=== PATIENT | male | born 1995 | race Two or more races ===

== ENCOUNTER 2017-11-19 10:49 | Day surgery (SDC) | payer OTHER ==
--- NOTE | 2017-11-12 10:34 | RADIOLOGY REPORT (SQ) ---
EXAM DESCRIPTION: CHEST PA/LATERAL COMPLETED DATE/TIME: 11/12/2017 10:23 am REASON FOR STUDY: PRE OP COMPARISON: None. EXAM PARAMETERS: NUMBER OF VIEWS: two views TECHNIQUE: Digital Frontal and Lateral radiographic views of the chest acquired. RADIATION DOSE: NA LIMITATIONS: none FINDINGS: LUNGS AND PLEURA: No opacities, masses or pneumothorax. No pleural effusion. MEDIASTINUM AND HILAR STRUCTURES: No masses or contour abnormalities. HEART AND VASCULAR STRUCTURES: Heart normal size. No evidence for failure. BONES: No acute findings. HARDWARE: None in the chest. OTHER: No other significant finding. IMPRESSION: NO SIGNIFICANT RADIOGRAPHIC FINDING IN THE CHEST. TECHNICAL DOCUMENTATION: JOB ID: [id number] [employer]- All Rights Reserved Reading location - IP/workstation name: [email or web address]
[2017-11-12 10:51] LABS: APPEARANCE,URINE CLEAR; BILIRUBIN,URINE NEGATIVE (NEGATIVE); COLOR,URINE STRAW; GLUCOSE, URINE NEGATIVE (NEGATIVE); KETONES,URINE NEGATIVE (NEGATIVE); LEUKOCYTE ESTERASE,URINE NEGATIVE (NEGATIVE); NITRITE,URINE NEGATIVE (NEGATIVE); PROTEIN,URINE NEGATIVE (NEGATIVE); URINE SPECIFIC GRAVITY 1.006; UROBILINOGEN,URINE NEGATIVE mg/dL (<2.0)
[2017-11-12 10:59] LABS: HEMATOCRIT 42.8 % (37.9-51.0); HEMOGLOBIN 14.6 g/dL (13.5-17.0); MEAN CORPUSCULAR HGB CONC 34.1 g/dL (32.0-36.0); MEAN CORPUSCULAR VOLUME 85 fl (80-97); PLATELET COUNT 219 10^3/uL (150-450); RED BLOOD COUNT 5.04 10^6/uL (4.35-5.55); RED CELL DISTRIBUTION WIDTH 13.2 % (11.5-14.0); WHITE BLOOD COUNT 5.3 10^3/uL (4.0-10.5)
--- NOTE | 2017-11-12 11:05 | EKG REPORT ---
SEVERITY:- BORDERLINE ECG - SINUS RHYTHM BORDERLINE T ABNORMALITIES, INFERIOR LEADS : Confirmed by: Maribel Díaz 12-Nov-2017 11:05:34
[2017-11-12 11:29] LABS: ANION GAP 15 (5-19); BLOOD UREA NITROGEN 16 mg/dL (7-20); CALCIUM 10.1 mg/dL (8.4-10.2); CARBON DIOXIDE 29 mmol/L (22-30); CHLORIDE 100 mmol/L (98-107); GLUCOSE 97 mg/dL (75-110); POTASSIUM 4.9 mmol/L (3.6-5.0); SODIUM 143.9 mmol/L (137-145)
[~2017-11-19 10:49] MED LIST: CEFAZOLIN SODIUM 2 GM in DEXTROSE 5%-WATER 100 ML IV PRN; LACTATED RINGERS 1000 ML IV PRN; LIDOCAINE 0.5% INJ-PF (5 MG/ML) 50 ML SDV SUBCUT PRN; LIDOCAINE 2% INJ-PF (20 MG/ML) 2 ML AMPUL ONE; METOCLOPRAMIDE HCL INJ/PF 10 MG/2 ML SDV ONE; ONDANSETRON HCL INJ/PF 4 MG/2 ML SDV ONE; SUCCINYLCHOLINE CHLORIDE INJ 200 MG/10 ML VIAL ONE
[2017-11-19] MEDS ORDERED: BUPIVACAINE HCL 0.5 % INJ/PF 30 ML SDV ONE (10:56)
[2017-11-19] MEDS ORDERED: FENTANYL CITRATE INJ/PF 100 MCG/2 ML AMPUL ONE ×3 (11:28→14:44)
[2017-11-19] MEDS ORDERED: LIDOCAINE 2% INJ-PF (20 MG/ML) 10 ML AMPUL ONE (11:28)
[2017-11-19] MEDS ORDERED: DEXAMETHASONE SOD PHOSPHATE INJ 4 MG/1 ML VIAL ONE (11:29)
[2017-11-19] MEDS ORDERED: ACETAMINOPHEN 0 ML IV ONE (11:29)
[2017-11-19] MEDS ORDERED: MIDAZOLAM 2 MG/2 ML INJ ONE ×2 (11:29→14:44)
[2017-11-19] MEDS ORDERED: PROPOFOL INJ 200 MG/20 ML VIAL IV ONE ×2 (11:30→14:44)
[2017-11-19] MEDS ORDERED: HYDROMORPHONE HCL INJ/PF 2 MG/ML AMPULE ONE (14:45)
[2017-11-19] MEDS ORDERED: FENTANYL CITRATE INJ/PF 100 MCG/2 ML AMPUL IV PRN ×3 (15:25)
[2017-11-19] MEDS ORDERED: DIPHENHYDRAMINE HCL 50 MG/ML VIAL IV PRN (15:25)
[2017-11-19] MEDS ORDERED: ONDANSETRON HCL INJ/PF 4 MG/2 ML SDV IV PRN ×2 (15:25→16:32)
[2017-11-19] MEDS ORDERED: MEPERIDINE HCL/PF INJ 25 MG/1 ML DISP.SYRIN IV PRN (15:25)
[2017-11-19] MEDS ORDERED: OXYCODONE-ACETAMINOPHEN 5-325 MG TABLET PO PRN (16:32)
[2017-11-19] MEDS ORDERED: MORPHINE SULFATE 10 MG/ML INJ IV PRN (16:32)
--- NOTE | 2017-11-19 16:32 | Brief Operative Note ---
BRIEF OPERATIVE REPORT DATE OF SURGERY: 11/19/17 TIME OF SURGERY: 16:30 PREOPERATIVE DIAGNOSIS: 1. Loose bodies right elbow. 2. Right elbow contracture. 3. Capitellar OCD POSTOPERATIVE DIAGNOSIS: Same SURGEON: ANKUSH STERN 1ST DOWNSTAIRS MAID: ISMAEL SEXTON FINDINGS: Grade II changes capitellum with grade III/IV changes on the radial neck COMPLICATIONS: None ESTIMATED BLOOD LOSS: Minimal TISSUE REMOVED OR ALTERED: Loose bodies right elbow TECHNICAL PROCEDURE: 1. Right elbow arthroscopy with chondroplasty capitellum. 2. Loose body removal. 3. Anterior capsulectomy
--- NOTE | 2017-11-19 16:34 | Discharge Summary ---
Discharge Summary (SDC) - Discharge Final Diagnosis: 1. Loose bodies right elbow 2. Right elbow contracture 3. Capitellar OCD Date of Surgery: 11/19/17 Discharge Date: 11/19/17 Condition: Good Treatment or Instructions: Schedule Follow Up w/ Dr. Gigi East @ [facility] for Surgery to be seen in 10-14 days or as scheduled [place]: [place]: [place]: May remove dressing on postop day #3, keep incision covered and dry. Ice and elevate May begin Hand/wrist range of motion attempting to make full fist. Begin elbow range of motion and Occupational Therapy 5-7 days postoperative Stool softener of choice when on pain medication. Prescriptions: Oxycodone HCl/Acetaminophen [Percocet 5-325 mg Tablet] 1 - 2 tab PO ASDIR PRN # 35 tablet PRN Reason: Discharge Diet: As Tolerated Respiratory Treatments at Home: Deep Breathing/Coughing Discharge Activity: No Lifting Over 10 Pounds, No Lifting/Push/Pulling Report the Following to Your Physician Immediately: Fever over 101 Degrees, Unusual Bleeding, Redness, Swelling, Warmth
[2017-11-19] MEDS: FENTANYL CITRATE INJ/PF 100 MCG/2 ML AMPUL ONE ×2 (17:05→17:10)
--- NOTE | 2017-11-19 17:13 | Operative Report ---
Operative Report DATE OF SURGERY: 11/19/17 PREOPERATIVE DIAGNOSIS: 1. Loose bodies right elbow. 2. Right elbow contracture. 3. Capitellar OCD POSTOPERATIVE DIAGNOSIS: Same OPERATION: 1. Right elbow arthroscopy with chondroplasty capitellum. 2. Loose body removal. 3. 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 In the supine position patient was induced and intubated successfully. Patient was placed in a lateral decubitus position with axillary roll and and a beanbag securing him. That was applied and [place] arm de la o was used after a tourniquet was applied to the right upper extremity. Once the elbow was draped and secured in the arm de la o the right upper extremity was prepped and draped in a normal sterile surgical fashion. Timeout was done identifying the right elbow is a correct site. Esmarch was used to exsanguinate the extremity and the tourniquet was inflated at 250 mmHg. 20 cc of sterile saline solution was injected in the soft spot and capsule was distended. Markings of the bony structures as well as the ulnar nerve and epicondyles. We started medially with a superior anterior medial portal and with a hemostat dissected bluntly and appears the capsule immediately had return of fluid showing proper triangulation. The actual trocar and camera scope was introduced and the capsule was distended with sterile saline solution. Once visualization of the joint was seen under direct visualization the superior lateral portal was established. Cannula was introduced and the 3.5 mm shaver was used to debride some of the capsule tissue and fat. This will give us good visualization of the coronoid and the radiocapitellar joint. Patient had diffuse grade 2 and 3 changes with no areas stable for microfracture. Elected then to proceed with chondroplasty. Dr. Sexton assisted on positioning of the elbow and retraction and help with placement of portals. Between a 3.5 mm shaver and a 4.0 mm shaver were able to resect cartilage to a stable construct. No loose bodies were seen. Some of the synovial tissue and capsule were debrided as well. Once were satisfied at this point we turned our attention to the olecranon fossa. A midline incision posteriorly was done 4 cm proximal to the tip. Blunt dissection with a hemostat was done piercing the capsular tissue. A posterior lateral accessory portal was established and also dissection with a hemostat was done. Went to use the camera and distended the space and then used a 4.0 mm shaver to do some of the resection of the fat tissue and synovial tissue. Immediately were able to visualize the fossa and were able to see all 3 loose bodies. A hemostat was used to remove the loose bodies and the pictures were taken on the back table showing the size and number of loose bodies removed. No further loose bodies were visualized. At this point further resection of the synovial tissue and fossa was done. The elbow was placed in range of motion showing no bony impingement so no need to do any bony resection or burning. The elbow was placed in range of motion and as mentioned before the anterior capsule had been stretch and released and debrided and were able to get the elbow to about 0-5 of extension. Significant improvement from is -30 in the office. At this point instruments were removed and then 2-0 Vicryl was used to approximate the dermal tissue of all portal sites and then 3-0 nylon was used to close all portal sites. Quarter percent Marcaine with epinephrine was injected at the portal sites. Xeroform 4 x 4 dressing and ABD pad was applied to the portal sites and overwrapped with soft roll. Tourniquet was let down at 68 minutes. Once drapes were removed the arm was overwrapped with an James bandage. Patient then was placed in a supine position where he was extubated and sent to PACU in a stable condition.
[2017-11-19 19:07] VITALS: BP 127/83
== END 2017-11-19 19:00 | disposition home or self-care (01) ==
LOC: OROUT 10:49
PROVIDERS: ATTEND Orthopaedic Surgery
DX: M93.2 Osteochondritis dissecans (principal); M24.021 Loose body in right elbow; M24.521 Contracture, right elbow
CPT/HCPCS: 93005; 36415; 85027; 80048; 81001; 71046; 93010; 29834; 24006; 29877; J2250; J3490 ×2; J0690; J3010; J2765; J1170; J0330; J2405; J2704; 1740; J0131; J1100